=== PATIENT | female | born 1945 | race Caucasian/White ===

== ENCOUNTER → 2016-08-24 | Outpatient (REF) | payer MEDICARE, OTHER ==
[~2016-08-24] MED LIST: ACET-654 PO; ARIC10TA PO; CLON0.5T PO; COCO1000 PO; COQ-200C PO; FAMO1TAB25 PO; FISH1000 PO; FURO40TA2 PO; KLOR1TAB77 PO; LEVO75TA4 PO; LOSA100T36 PO; MELA1CAP2 PO; POTA595T8 PO; PRESCAP PO; SERT50TA PO; TORS100T PO; TRAM50TA2 PO; TYLE650T35 PO; VITA10002 PO; VITA10005 PO; VITA100066 PO; VOLT1GEL24 TD; [UNRECOGNIZED DRUG - CODE] PO
[2016-08-24 17:36] LABS: ANION GAP 4 MEQ/L (8-16); BLOOD UREA NITROGEN 16 MG/DL (7-18); CALCIUM LEVEL 8.9 MG/DL (8.8-10.2); CARBON DIOXIDE LEVEL 34 MEQ/L (21-32); CHLORIDE LEVEL 103 MEQ/L (98-107); GLOMERULAR FILTRATION RATE > 60.0 (>39); GLUCOSE, FASTING 103 MG/DL (83-110); POTASSIUM SERUM 3.6 MEQ/L (3.5-5.1); SODIUM LEVEL 141 MEQ/L (136-145)
== END ==
LOC: M LABDRAWC 16:19
PROVIDERS: ATTEND Internal Medicine Cardiovascular Disease
DX: I11.0 Hypertensive heart disease with heart failure (principal); I50.9 Heart failure, unspecified

== ENCOUNTER 2017-01-04 10:21 | Emergency (ER) | payer MEDICARE, OTHER ==
[~2017-01-04] VITALS: Ht 165.1 cm; Wt 113.6 kg
[~2017-01-04 10:21] MED LIST changes: -ACET-654 PO; +ACET1TAB17 PO; -ARIC10TA PO; +ARIC1TAB2 PO; +VOLT1GEL15 TD; -VOLT1GEL24 TD; +[UNRECOGNIZED DRUG - CODE] PO; -[UNRECOGNIZED DRUG - CODE] PO
[2017-01-04 11:06] LABS: BASO # 0.1 10^3/uL (0.0-0.2); BASO % 0.9 % (0.0-1.0); EOS # 0.3 10^3/uL (0.0-0.50); EOS % 3.8 % (0.0-3.0); IMMATURE GRANULOCYTE % 0.1 % (0-0); LYMPH # 2.2 10^3/uL (1.5-4.5); LYMPH % 31.5 % (24.0-44.0); MEAN CORPUSCULAR HEMOGLOBIN 24.2 pg (27.0-33.0); MEAN CORPUSCULAR HGB CONC 30.1 g/dl (32.0-36.5); MEAN CORPUSCULAR VOLUME 80.5 fl (80.0-96.0); MONO # 0.7 10^3/uL (0.0-0.8); MONO % 10.8 % (0.0-5.0); NEUTROPHILS # 3.6 10^3/uL (1.8-7.7); NEUTROPHILS % 52.9 % (36.0-66.0); PLATELET COUNT, AUTOMATED 236 10^3/uL (150-450); RED CELL DISTRIBUTION WIDTH 15.8 % (11.5-14.5); WHITE BLOOD COUNT 6.9 10^3/uL (4.0-10.0)
[2017-01-04 11:18] LABS: INR 0.96
--- NOTE | 2017-01-04 11:26 | REP ---
Chest two views HISTORY: Shortness of breath Comparison: 02/05/2015 The lungs are clear. The heart is normal in size. The pulmonary vasculature is normal in appearance. The bony structure is intact. IMPRESSION: No acute disease. Signed by Charles Hooks MD 01/04/2017 11:17 A
[2017-01-04 11:30] LABS: ALBUMIN 3.2 GM/DL (3.2-5.2); ALBUMIN/GLOBULIN RATIO 0.73 (1.00-1.93); ALKALINE PHOSPHATASE 101 U/L (45-117); ALT/SGPT 16 U/L (12-78); ANION GAP 4 MEQ/L (8-16); AST/SGOT 18 U/L (15-37); BILIRUBIN,DIRECT 0.1 MG/DL (0.0-0.2); BILIRUBIN,TOTAL 0.3 MG/DL (0.2-1.0); BLOOD UREA NITROGEN 16 MG/DL (7-18); CALCIUM LEVEL 8.3 MG/DL (8.8-10.2); CARBON DIOXIDE LEVEL 34 MEQ/L (21-32); CHLORIDE LEVEL 102 MEQ/L (98-107); CREATININE FOR GFR 0.96 MG/DL (0.55-1.02); GLOMERULAR FILTRATION RATE > 60.0 (>39); GLUCOSE, FASTING 120 MG/DL (83-110); POTASSIUM SERUM 3.2 MEQ/L (3.5-5.1); SODIUM LEVEL 140 MEQ/L (136-145); TOTAL PROTEIN 7.6 GM/DL (6.4-8.2)
[2017-01-04] MEDS ORDERED: POTASSIUM CHLORIDE 10 MEQ SR TABLET PO ONE (12:00)
[2017-01-04] MEDS ORDERED: ISOVUE-370 76% 100ML VIAL (Q9967) As Ordered ONE (12:35)
--- NOTE | 2017-01-04 13:50 | REP ---
CT ANGIOGRAM OF THE CHEST: TECHNIQUE: Axial contrast enhanced images from the thoracic inlet to the upper abdomen using 100 mL Isovue 370 intravenous contrast material with multiplanar reformations. There is no CT evidence of pulmonary embolism. There is no thoracic aortic aneurysm or dissection. There is no mediastinal, hilar, or chest wall lymphadenopathy. There is no pleural or pericardial effusion. Heart is normal in size. Two left lobe liver cysts are again seen. No consolidative infiltrate is seen in either lung. There are bibasilar fibroatelectatic changes. IMPRESSION: No CT evidence of pulmonary embolism. Signed by Mike Sanchez MD 01/04/2017 05:35 P
[2017-01-04 14:27] VITALS: BP 128/61
--- NOTE | 2017-01-05 05:55 | ECGEPIP ---
Stationary ECG Study [facility] - ED Test Date: 2017-01-04 Pat Name: PASCUAL IRELAND Department: Room: - Gender: F Incident Response Coordinator: nena : 1945 Requested By: Khushboo Chaparro Order Number: [id number] Reading MD: Meet Stewart Measurements Intervals [place] Rate: 62 P: 83 VA: 175 QRS: 23 QRSD: 90 T: 23 QT: 400 QTc: 407 Interpretive Statements SINUS RHYTHM MINIMAL ST DEPRESSION SIMILAR TO 05/08/15 Electronically Signed On 01-05-2017 5:55:39 EDT by Meet Stewart
== END 2017-01-04 14:28 | disposition home or self-care (01) ==
LOC: M ED 10:21
DX: R06.00 Dyspnea, unspecified (principal); J06.9 Acute upper respiratory infection, unspecified; I50.9 Heart failure, unspecified; I10 Essential (primary) hypertension; G47.30 Sleep apnea, unspecified; I27.20 Pulmonary hypertension, unspecified; Z98.84 Bariatric surgery status; Z79.899 Other long term (current) drug therapy; Z88.0 Allergy status to penicillin; Z88.8 Allergy status to other drugs, medicaments and biological substances
CPT/HCPCS: 71020; 71275; 80048; 80076; 82550; 82553; 83880; 84443; 84484; 85025; 85610; 87040; 93005; 93041; 94760; 99284; Q9967

== ENCOUNTER → 2017-04-19 | Outpatient (REF) | payer MEDICARE, OTHER ==
[2017-04-19 19:01] LABS: HEMATOCRIT 38.1 % (36.0-47.0); HEMOGLOBIN 11.3 g/dl (12.0-16.0); MEAN CORPUSCULAR HEMOGLOBIN 24.2 pg (27.0-33.0); MEAN CORPUSCULAR HGB CONC 29.7 g/dl (32.0-36.5); MEAN CORPUSCULAR VOLUME 81.6 fl (80.0-96.0); PLATELET COUNT, AUTOMATED 286 10^3/uL (150-450); RED BLOOD COUNT 4.67 10^6/uL (4.00-5.40); RED CELL DISTRIBUTION WIDTH 19.1 % (11.5-14.5)
[2017-04-19 20:00] LABS: ALBUMIN 3.5 GM/DL (3.2-5.2); ALBUMIN/GLOBULIN RATIO 0.92 (1.00-1.93); ALKALINE PHOSPHATASE 94 U/L (45-117); ALT/SGPT 23 U/L (12-78); ANION GAP 6 MEQ/L (8-16); AST/SGOT 21 U/L (7-37); BILIRUBIN,TOTAL 0.3 MG/DL (0.2-1.0); BLOOD UREA NITROGEN 25 MG/DL (7-18); CALCIUM LEVEL 8.2 MG/DL (8.8-10.2); CARBON DIOXIDE LEVEL 31 MEQ/L (21-32); CHLORIDE LEVEL 104 MEQ/L (98-107); CREATININE FOR GFR 0.94 MG/DL (0.55-1.30); GLOMERULAR FILTRATION RATE > 60.0 (>39); GLUCOSE, FASTING 93 MG/DL (70-100); POTASSIUM SERUM 4.5 MEQ/L (3.5-5.1); SODIUM LEVEL 141 MEQ/L (136-145); TOTAL PROTEIN 7.3 GM/DL (6.4-8.2)
[2017-04-19 20:04] LABS: PTH INTACT 180.2 PG/ML (14.0-72.0)
== END ==
LOC: M SFHCCLAY 13:30
DX: I50.32 Chronic diastolic (congestive) heart failure (principal); E03.9 Hypothyroidism, unspecified; M54.5 Low back pain; G89.29 Other chronic pain
CPT/HCPCS: 84443

== ENCOUNTER 2017-09-06 07:29 | Day surgery (SDC) | payer MEDICARE, OTHER ==
[2017-09-06] MEDS: DUOVISC (0.50ML VISCOAT/0.55ML PROVISC) OPHTH KIT As Ordered (06:37)
[2017-09-06] MEDS: CEFUROXIME 1MG/0.1ML INTRACAMERAL INJ As Ordered (06:37)
[2017-09-06] MEDS ORDERED: fentaNYL 100 MCG/2 ML INJECTION (J3010) As Ordered (08:07)
[2017-09-06] MEDS ORDERED: MIDAZOLAM INJ 2 MG/2 ML VIAL (J2250) As Ordered (08:07)
[2017-09-06] MEDS: PHENYLEPHRINE 2.5% OPHTH SOL 2ML OS (08:10)
[2017-09-06] MEDS: PROPARACAINE 0.5% OPHTH SOL 15ML OS (08:10)
[2017-09-06] MEDS: TROPICAMIDE 1% OPHTH SOLN 2ML OS (08:10)
[2017-09-06] MEDS: OFLOXACIN 0.3 % (OCUFLOX) OPTH SOL 5ML OS (08:10)
[2017-09-06] MEDS: POVIDONE-IODINE 5% OPHTH PREP SOL 30ML As Ordered (08:58)
[2017-09-06] MEDS: BALANCED SALT IRRIGATION SOLUTION 500ML BAG (FOR OR EYE MACHINE) As Ordered (08:59)
[2017-09-06] MEDS: LIDOCAINE 0.75%/EPINEPHRINE 0.025% IN BSS 1ML SYR INTRACAMERAL (OR ONLY) As Ordered (09:00)
== END 2017-09-06 09:47 | disposition home or self-care (01) ==
LOC: M SDC 07:29
DX: H25.12 Age-related nuclear cataract, left eye (principal); I11.0 Hypertensive heart disease with heart failure; I50.32 Chronic diastolic (congestive) heart failure; E78.5 Hyperlipidemia, unspecified; E03.9 Hypothyroidism, unspecified; R01.1 Cardiac murmur, unspecified; I73.9 Peripheral vascular disease, unspecified; K59.00 Constipation, unspecified; K57.32 Diverticulitis of large intestine without perforation or abscess without bleeding; M50.90 Cervical disc disorder, unspecified, unspecified cervical region; M47.892 Other spondylosis, cervical region; R41.81 Age-related cognitive decline; K58.9 Irritable bowel syndrome, unspecified; D64.9 Anemia, unspecified; M17.0 Bilateral primary osteoarthritis of knee; F41.9 Anxiety disorder, unspecified; F03.90 Unspecified dementia, unspecified severity, without behavioral disturbance, psychotic disturbance, mood disturbance, and anxiety; R51 Headache; K92.1 Melena; R06.83 Snoring; G47.33 Obstructive sleep apnea (adult) (pediatric); M20.41 Other hammer toe(s) (acquired), right foot; E66.9 Obesity, unspecified; Z68.41 Body mass index [BMI] 40.0-44.9, adult; Z88.0 Allergy status to penicillin; Z79.899 Other long term (current) drug therapy; Z87.820 Personal history of traumatic brain injury; Z78.0 Asymptomatic menopausal state; Z96.651 Presence of right artificial knee joint; Z90.710 Acquired absence of both cervix and uterus; Z98.84 Bariatric surgery status; Z80.0 Family history of malignant neoplasm of digestive organs
CPT/HCPCS: 66984

== ENCOUNTER 2017-09-13 09:16 | Day surgery (SDC) | payer MEDICARE, OTHER ==
[2017-09-13] MEDS: ACETYLCHOLINE OPHTH SOLN 1% 2ML (MIOCHOL-E) As Ordered (06:51)
[~2017-09-13 09:16] MED LIST changes: -ACET1TAB17 PO; -ARIC1TAB2 PO; -CLON0.5T PO; -COCO1000 PO; -COQ-200C PO; -FAMO1TAB25 PO; -FISH1000 PO; -FURO40TA2 PO; -KLOR1TAB77 PO; -LEVO75TA4 PO; -LOSA100T36 PO; -MELA1CAP2 PO; +MIDAZOLAM INJ 2 MG/2 ML VIAL (J2250) As Ordered; -POTA595T8 PO; -PRESCAP PO; -SERT50TA PO; -TORS100T PO; -TRAM50TA2 PO; -TYLE650T35 PO; -VITA10002 PO; -VITA10005 PO; -VITA100066 PO; -VOLT1GEL15 TD; -[UNRECOGNIZED DRUG - CODE] PO; +fentaNYL 100 MCG/2 ML INJECTION (J3010) As Ordered
[2017-09-13] MEDS: PROPARACAINE 0.5% OPHTH SOL 15ML OD (10:05)
[2017-09-13] MEDS: OFLOXACIN 0.3 % (OCUFLOX) OPTH SOL 5ML OD (10:06)
[2017-09-13] MEDS: TROPICAMIDE 1% OPHTH SOLN 2ML OD (10:07)
[2017-09-13] MEDS: PHENYLEPHRINE 2.5% OPHTH SOL 2ML OD (10:08)
[2017-09-13] MEDS: BALANCED SALT IRRIGATION SOLUTION 500ML BAG (FOR OR EYE MACHINE) As Ordered (11:32)
[2017-09-13] MEDS: LIDOCAINE 0.75%/EPINEPHRINE 0.025% IN BSS 1ML SYR INTRACAMERAL (OR ONLY) As Ordered (11:32)
[2017-09-13] MEDS: POVIDONE-IODINE 5% OPHTH PREP SOL 30ML As Ordered (11:32)
[2017-09-13] MEDS: DUOVISC (0.50ML VISCOAT/0.55ML PROVISC) OPHTH KIT As Ordered (11:32)
== END 2017-09-13 12:24 | disposition home or self-care (01) ==
LOC: M SDC 09:16
DX: H25.11 Age-related nuclear cataract, right eye (principal); I10 Essential (primary) hypertension; I50.32 Chronic diastolic (congestive) heart failure; E78.5 Hyperlipidemia, unspecified; E03.9 Hypothyroidism, unspecified; M17.0 Bilateral primary osteoarthritis of knee; R01.1 Cardiac murmur, unspecified; I73.9 Peripheral vascular disease, unspecified; D64.9 Anemia, unspecified; M50.90 Cervical disc disorder, unspecified, unspecified cervical region; F41.9 Anxiety disorder, unspecified; F09 Unspecified mental disorder due to known physiological condition; R41.81 Age-related cognitive decline; G47.33 Obstructive sleep apnea (adult) (pediatric); R06.83 Snoring; K59.00 Constipation, unspecified; M20.41 Other hammer toe(s) (acquired), right foot; G89.29 Other chronic pain; Z88.0 Allergy status to penicillin; Z88.8 Allergy status to other drugs, medicaments and biological substances; Z79.899 Other long term (current) drug therapy; Z87.820 Personal history of traumatic brain injury; Z78.0 Asymptomatic menopausal state; Z98.84 Bariatric surgery status; Z96.651 Presence of right artificial knee joint
CPT/HCPCS: 66984

== ENCOUNTER → 2017-11-23 | Outpatient (CLI) | payer MEDICARE, OTHER | LOC: M CLY 10:30 | DX: M51.36 Other intervertebral disc degeneration, lumbar region (principal); M54.5 Low back pain; I50.32 Chronic diastolic (congestive) heart failure; E03.9 Hypothyroidism, unspecified; G47.33 Obstructive sleep apnea (adult) (pediatric) | CPT/HCPCS: 72110; 84443 ==

== ENCOUNTER → 2017-11-23 | Outpatient (REF) | payer MEDICARE, OTHER ==
[2017-11-23 19:34] LABS: ALBUMIN 3.8 GM/DL (3.2-5.2); ALBUMIN/GLOBULIN RATIO 0.93 (1.00-1.93); ALKALINE PHOSPHATASE 96 U/L (45-117); ALT/SGPT 26 U/L (12-78); ANION GAP 7 MEQ/L (8-16); AST/SGOT 24 U/L (7-37); BILIRUBIN,TOTAL 0.4 MG/DL (0.2-1.0); BLOOD UREA NITROGEN 19 MG/DL (7-18); CALCIUM LEVEL 9.3 MG/DL (8.8-10.2); CARBON DIOXIDE LEVEL 33 MEQ/L (21-32); CHLORIDE LEVEL 103 MEQ/L (98-107); FREE T4 1.19 NG/DL (0.76-1.46); GLOMERULAR FILTRATION RATE 57.7 (>39); GLUCOSE, FASTING 107 MG/DL (70-100); POTASSIUM SERUM 5.1 MEQ/L (3.5-5.1); SODIUM LEVEL 143 MEQ/L (136-145); TOTAL PROTEIN 7.9 GM/DL (6.4-8.2)
[2017-11-23 19:44] LABS: HEMATOCRIT 44.1 % (36.0-47.0); MEAN CORPUSCULAR HEMOGLOBIN 28.3 pg (27.0-33.0); MEAN CORPUSCULAR HGB CONC 31.7 g/dl (32.0-36.5); MEAN CORPUSCULAR VOLUME 89.1 fl (80.0-96.0); PLATELET COUNT, AUTOMATED 275 10^3/uL (150-450); RED BLOOD COUNT 4.95 10^6/uL (4.00-5.40); RED CELL DISTRIBUTION WIDTH 14.9 % (11.5-14.5); WHITE BLOOD COUNT 7.9 10^3/uL (4.0-10.0)
== END ==
LOC: M SFHCCLAY 10:14
DX: I50.32 Chronic diastolic (congestive) heart failure (principal); E03.9 Hypothyroidism, unspecified; G47.33 Obstructive sleep apnea (adult) (pediatric)
CPT/HCPCS: 84443

== ENCOUNTER → 2018-04-20 | Outpatient (CLI) | payer MEDICARE, OTHER ==
[~2018-04-20] MED LIST changes: +ACET1TAB55 PO; +ARIC1TAB2 PO; +CLON0.5T8 PO; +CO Q100C PO; +COCO1000 PO; +COQ-200C PO; +FAMO1TAB25 PO; +FISH1000 PO; +FURO40TA2 PO; +IRON100T PO; +IRONTAB2 PO; +KLOR1TAB77 PO; +LEVO75TA4 PO; +LOSA100T50 PO; +MELA1CAP2 PO; -MIDAZOLAM INJ 2 MG/2 ML VIAL (J2250) As Ordered; +POTA595T8 PO; +PRESCAP PO; +SERT50TA PO; +SPIR-10 PO; +TORS100T PO; +TRAM50TA2 PO; +TRIPCAP PO; +TUMS500C PO; +TYLE650T35 PO; +VITA-137 PO; +VITA10002 PO; +VITA10005 PO; +VITA100066 PO; +VITA1OIL PO; +VOLT1GEL15 TD; +[UNRECOGNIZED DRUG - CODE] PO; -fentaNYL 100 MCG/2 ML INJECTION (J3010) As Ordered
--- NOTE | 2018-04-20 10:29 | REP ---
Clinical: Morning headaches. Comparison: 03/04/2016 . Findings: Age-related atrophy and microvascular ischemic changes are appreciated. The ventricles and sulci are symmetric. Sanchez-white differentiation is maintained. There is no evidence for acute intracranial hemorrhage, mass/mass effect, pathology or infarction. No extra-axial fluid collection. Calvarium is intact. Paranasal sinuses and mastoid air cells are clear. Stable chronic calcification in the high right frontal scalp may represent calcified sebaceous cyst. Impression: Age related atrophy and microvascular ischemic changes. No acute intracranial hemorrhage, infarction, or mass/mass effect. Electronically Signed by Alex Honeycutt MD 04/20/2018 10:19 A
== END ==
LOC: M RAD 09:51
PROVIDERS: ATTEND Family Medicine
DX: R51 Headache (principal)

== ENCOUNTER 2018-04-26 17:29 | Emergency (ER) | payer MEDICARE, OTHER ==
[~2018-04-26] VITALS: Ht 170.2 cm; Wt 125.0 kg
--- NOTE | 2018-04-26 18:04 | ECGEPIP ---
Stationary ECG Study [facility] - ED Test Date: 2018-04-26 Pat Name: PASCUAL IRELNAD Department: Room: - Gender: F Traffic Rate Computer: AB : 1945 Requested By: ALYSSA Blanco Order Number: [id number] Reading MD: Khushboo Chaparro Measurements Intervals [place] Rate: 51 P: 44 VT: 192 QRS: 11 QRSD: 84 T: 8 QT: 425 QTc: 392 Interpretive Statements SINUS BRADYCARDIA NSTTW ABNORMALITY DECREASED RATE 01/04/17 Electronically Signed On 04-26-2018 18:04:36 EST by Khushboo Chaparro
[2018-04-26 18:12] LABS: BASO # 0.1 10^3/uL (0.0-0.2); BASO % 0.7 % (0.0-1.0); EOS # 0.2 10^3/uL (0.0-0.50); HEMATOCRIT 41.6 % (36.0-47.0); MEAN CORPUSCULAR HEMOGLOBIN 28.2 pg (27.0-33.0); MEAN CORPUSCULAR HGB CONC 31.3 g/dl (32.0-36.5); MEAN CORPUSCULAR VOLUME 90.2 fl (80.0-96.0); MONO # 0.6 10^3/uL (0.0-0.8); MONO % 7.5 % (0.0-5.0); NEUTROPHILS # 3.8 10^3/uL (1.8-7.7); NEUTROPHILS % 49.5 % (36.0-66.0); PLATELET COUNT, AUTOMATED 217 10^3/uL (150-450); RED BLOOD COUNT 4.61 10^6/uL (4.00-5.40); WHITE BLOOD COUNT 7.7 10^3/uL (4.0-10.0)
[2018-04-26 18:24] LABS: INR 0.9; PROTHROMBIN TIME 12.2 SECONDS (12.1-14.4)
[2018-04-26 18:25] LABS: PARTIAL THROMBOPLASTIN TIME 29.7 SECONDS (25.4-37.6)
[2018-04-26 18:48] LABS: BLOOD UREA NITROGEN 25 MG/DL (7-18); CALCIUM LEVEL 8.3 MG/DL (8.8-10.2); CARBON DIOXIDE LEVEL 28 MEQ/L (21-32); CHLORIDE LEVEL 107 MEQ/L (98-107); CPK CREATINE PHOSPHOKINASE 102 U/L (26-192); GLOMERULAR FILTRATION RATE 57.7 (>39); GLUCOSE, FASTING 97 MG/DL (70-100); MB/CK RELATIVE INDEX 2.55 (< OR =4); SODIUM LEVEL 143 MEQ/L (136-145); TROPONIN I < 0.02 NG/ML (< 0.10)
--- NOTE | 2018-04-26 18:53 | REP ---
CHEST, PORTABLE: AP portable view of the chest is performed and compared to prior study of 01/04/2017. There is no acute infiltrate or pulmonary edema. The heart is upper limits of normal in size. There is some tortuosity of the thoracic aorta. The mediastinal silhouette is unchanged. There are mild degenerative changes of the spine. IMPRESSION: No acute pulmonary disease. Electronically Signed by Mike Sanchez MD 04/26/2018 07:48 P
[2018-04-26 19:28] VITALS: BP 108/64
[2018-04-26] MEDS ORDERED: NORCO, ANEXSIA 5/325MG TABLET (HYDROcodone/ACETAMINOPHEN) PO ONE (19:30)
[2018-04-26] MEDS ORDERED: NORCO 5/325MG TABLET (BULK FOR ED) PO ONE (19:30)
== END 2018-04-26 19:40 | disposition home or self-care (01) ==
LOC: EDBD 17:29 → M ED 17:29
DX: R07.89 Other chest pain (principal); R00.1 Bradycardia, unspecified; Z98.84 Bariatric surgery status; I10 Essential (primary) hypertension; E03.9 Hypothyroidism, unspecified; Z79.899 Other long term (current) drug therapy; Z88.0 Allergy status to penicillin; Z88.8 Allergy status to other drugs, medicaments and biological substances

== ENCOUNTER → 2018-08-22 | Outpatient (REF) | payer MEDICARE, OTHER ==
[~2018-08-22] MED LIST changes: +SERT-141 PO; -SERT50TA PO
[2018-08-22 20:22] LABS: BLOOD UREA NITROGEN 17 MG/DL (7-18); CALCIUM LEVEL 9.7 MG/DL (8.8-10.2); CARBON DIOXIDE LEVEL 31 MEQ/L (21-32); CHLORIDE LEVEL 105 MEQ/L (98-107); CREATININE FOR GFR 0.87 MG/DL (0.55-1.30); GLOMERULAR FILTRATION RATE > 60.0 (>39); GLUCOSE, FASTING 111 MG/DL (70-100); POTASSIUM SERUM 4.8 MEQ/L (3.5-5.1); SODIUM LEVEL 142 MEQ/L (136-145)
== END ==
LOC: M SFHCCLAY 10:15
PROVIDERS: ATTEND Family Medicine
DX: R41.81 Age-related cognitive decline (principal); E03.9 Hypothyroidism, unspecified
CPT/HCPCS: 80048; 84252; 84439; 84443; G0463

== ENCOUNTER → 2018-08-26 | Outpatient (CLI) | payer MEDICARE, OTHER ==
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
== END ==
LOC: M CLY 09:44
PROVIDERS: ATTEND Family Medicine
DX: M25.862 Other specified joint disorders, left knee (principal); M25.762 Osteophyte, left knee

== ENCOUNTER → 2019-01-29 | Outpatient (REF) | payer MEDICARE, OTHER ==
[~2019-01-29] MED LIST changes: +CYAN100049 PO; -VITA10002 PO
[2019-01-29 11:53] LABS: ALBUMIN 3.2 GM/DL (3.2-5.2); BLOOD UREA NITROGEN 16 MG/DL (7-18); CARBON DIOXIDE LEVEL 34 MEQ/L (21-32); CHLORIDE LEVEL 106 MEQ/L (98-107); CREATININE FOR GFR 0.94 MG/DL (0.55-1.30); FREE T4 0.96 NG/DL (0.76-1.46); GLOMERULAR FILTRATION RATE > 60.0 (>39); GLUCOSE, FASTING 114 MG/DL (70-100); POTASSIUM SERUM 4.3 MEQ/L (3.5-5.1); SODIUM LEVEL 143 MEQ/L (136-145)
== END ==
LOC: M SFHCCLAY 08:27
PROVIDERS: ATTEND Family Medicine
DX: E03.9 Hypothyroidism, unspecified (principal); I50.32 Chronic diastolic (congestive) heart failure

== ENCOUNTER 2019-03-26 11:15 | Emergency (ER) | payer MEDICARE, OTHER ==
[~2019-03-26] VITALS: Ht 152.4 cm; Wt 122.7 kg
[~2019-03-26 11:15] MED LIST changes: +CLON0.5T2 PO; -CLON0.5T8 PO
[2019-03-26] MEDS ORDERED: ST JOHNS WART PO (11:47)
[2019-03-26] MEDS ORDERED: MAPA500C PO (11:47)
[2019-03-26] MEDS ORDERED: TURM1CAP5 PO (11:47)
[2019-03-26] MEDS ORDERED: SUPETAB56 PO (11:47)
[2019-03-26 11:58] LABS: BASO # 0.1 10^3/uL (0.0-0.2); BASO % 0.7 % (0.0-1.0); EOS # 0.1 10^3/uL (0.0-0.5); EOS % 1.7 % (0.0-3.0); HEMATOCRIT 44.5 % (36.0-47.0); HEMOGLOBIN 13.8 g/dl (12.0-15.5); LYMPH # 2.7 10^3/uL (1.5-5.0); LYMPH % 35.4 % (24.0-44.0); MEAN CORPUSCULAR VOLUME 90.4 fl (80.0-96.0); MONO # 0.7 10^3/uL (0.0-0.8); MONO % 8.5 % (0.0-5.0); NEUTROPHILS # 4.1 10^3/uL (1.5-8.5); NEUTROPHILS % 53.4 % (36.0-66.0); PLATELET COUNT, AUTOMATED 244 10^3/uL (150-450); RED BLOOD COUNT 4.92 10^6/uL (4.00-5.40); WHITE BLOOD COUNT 7.7 10^3/uL (4.0-10.0)
--- NOTE | 2019-03-26 12:07 | REP ---
Portable chest x-ray: Single view. History: Dyspnea. Cough. Comparison study May 08, 2018. Findings: The lungs are well inflated and clear. Pleural angles are sharp. Heart size is mildly enlarged unchanged. The aorta somewhat tortuous. Pulmonary vasculature is not increased. Impression: Mild cardiomegaly. Otherwise no acute disease. Electronically Signed by Sherif Henderson MD 03/26/2019 11:58 A
[2019-03-26 12:26] LABS: BLOOD UREA NITROGEN 28 MG/DL (7-18); CALCIUM LEVEL 9.1 MG/DL (8.8-10.2); CARBON DIOXIDE LEVEL 28 MEQ/L (21-32); CHLORIDE LEVEL 102 MEQ/L (98-107); CK-MB VALUE MASS < 1.0 NG/ML (<3.6); CPK CREATINE PHOSPHOKINASE 37 U/L (26-192); CREATININE FOR GFR 1.19 MG/DL (0.55-1.30); GLOMERULAR FILTRATION RATE 47.1 (>39); GLUCOSE, FASTING 111 MG/DL (70-100); NT-PRO BNP 127 PG/ML (<450); POTASSIUM SERUM 3.7 MEQ/L (3.5-5.1); SODIUM LEVEL 140 MEQ/L (136-145); TROPONIN I < 0.02 NG/ML (< 0.10)
[2019-03-26 12:47] LABS: FREE T4 1.19 NG/DL (0.76-1.46)
[2019-03-26] MEDS ORDERED: ISOVUE-370 76% 100ML VIAL (Q9967) As Ordered ONE (13:32)
--- NOTE | 2019-03-26 13:36 | REP ---
Duplex extremity venous ultrasound: Bilateral lower extremities. History: Bilateral lower extremity edema and pain. Rule out DVT. Findings: The deep veins are anechoic and fully compressible from the groin to the popliteal fossa in the left and right lower extremity. Color flow imaging is homogeneous. Spectral Doppler interrogation demonstrates intact respiratory variation in flow and normal manual augmentation of flow. There is no evidence of deep vein thrombosis. Incidental note is made of a 6.7 x 0.7 x 2.5 cm cystic structure in the popliteal fossa on the left consistent with a Ray's cyst. Impression: Negative bilateral lower extremity duplex venous ultrasound. No evidence of deep vein thrombosis. A Ray's cyst is visible on the left. Electronically Signed by Sherif Henderson MD 03/26/2019 01:28 P
[2019-03-26 14:34] VITALS: O2SAT 99
--- NOTE | 2019-03-26 14:37 | REP ---
CT PULMONARY ANGIOGRAM: WITH IV CONTRAST. HISTORY: Chest and shortness of breath COMPARISON STUDIES: Comparison chest CT study, January 04, 2017. March 04, 2016 prior study is also reviewed. CONTRAST DOSE: 75 mL of Isovue [address] TECHNIQUE: Helical scanning is acquired and overlapping 1.5 mm and contiguous 3 mm axial images are reformatted. In addition, maximum intensity projection and multiplanar re-formation images are generated in sagittal and coronal imaging projections. CT PULMONARY ANGIOGRAPHIC FINDINGS: There is good opacification in the pulmonary arterial tree. There is no evidence of vessel cutoff or filling defect to suggest pulmonary embolus. Maximum intensity projection images show no vascular abnormality. Mild vascular calcification is seen. There is no evidence of aortic aneurysm or dissection. No pleural or pericardial effusion is seen. The patient is status post cholecystectomy and gastric bypass surgery. There is a right adrenal nodule which measures 2.6 cm in greatest diameter. This is a relatively low density. It is felt to be unchanged from comparison CT studies March 04, 2016. The visualized upper abdominal structures are otherwise unremarkable. There is a small cyst in the left lobe of the liver also unchanged. There is no evidence of hilar or mediastinal mass or adenopathy. No infiltrate or mass is seen in the lung callahan. No significant pulmonary nodule is appreciated. There is a small calcified granuloma in the right lower lobe posteriorly. IMPRESSION: No CT evidence of pulmonary embolus. No acute disease. Electronically Signed by Sherif Henderson MD 03/26/2019 04:42 P
[2019-03-26 18:11] LABS: CK-MB VALUE MASS 1.3 NG/ML (<3.6); CPK CREATINE PHOSPHOKINASE 46 U/L (26-192); MB/CK RELATIVE INDEX 2.83 (< OR =4); TROPONIN I < 0.02 NG/ML (< 0.10)
--- NOTE | 2019-03-26 18:15 | ECGEPIP ---
[facility] - ED Test Date: 2019-03-26 Pat Name: PASCUAL IRELAND Department: Room: - Gender: Female Infant Caregiver: DEV : 1945 Requested By: Meet Reed Order Number: [id number] Reading MD: Khushboo Chaparro Measurements Intervals [place] Rate: 56 P: 66 AK: 176 QRS: 24 QRSD: 90 T: 21 QT: 421 QTc: 410 Interpretive Statements SINUS BRADYCARDIA NSTTW abnormalities SIMILAR 04/26/18 Electronically Signed on 03-26-2019 18:15:04 EST by Khushboo Chaparro
--- NOTE | 2019-03-26 18:26 | ECGEPIP ---
[facility] - ED Test Date: 2019-03-26 Pat Name: PASCUAL IRELAND Department: Room: - Gender: Female Manager E Commerce: DEV : 1945 Requested By: WOLF Boogie Order Number: [id number] Reading MD: Khushboo Chaparro Measurements Intervals [place] Rate: 46 P: 83 AR: 198 QRS: 22 QRSD: 88 T: 26 QT: 447 QTc: 391 Interpretive Statements SINUS BRADYCARDIA MODERATE ST DEPRESSION DECREASED RATE 03/26/19 11:33 Electronically Signed on 03-26-2019 18:25:57 EST by Khushboo Chaparro
[2019-03-26 18:30] VITALS: BP 160/95
== END 2019-03-26 18:54 | disposition home or self-care (01) ==
LOC: M ED 11:15
DX: R06.02 Shortness of breath (principal); I11.0 Hypertensive heart disease with heart failure; R00.1 Bradycardia, unspecified; M71.22 Synovial cyst of popliteal space [Baker], left knee; E66.9 Obesity, unspecified; Z86.79 Personal history of other diseases of the circulatory system; Z88.0 Allergy status to penicillin; Z91.09 Other allergy status, other than to drugs and biological substances; Z79.811 Long term (current) use of aromatase inhibitors; Z79.899 Other long term (current) drug therapy
CPT/HCPCS: 36415; 71045; 71275; 80048; 82550; 82553; 83880; 84439; 84443; 84484; 85025; 93005; 93041; 93970; 94760; 99285; Q9967

== ENCOUNTER → 2019-04-02 | Outpatient (CLI) | payer MEDICARE, OTHER ==
[~2019-04-02] MED LIST changes: +MAPA500C PO; +ST JOHNS WART PO; +SUPETAB56 PO; +TURM1CAP5 PO
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
== END ==
LOC: M PAIN 09:30
PROVIDERS: ATTEND Family Medicine
DX: M54.2 Cervicalgia (principal); M54.5 Low back pain

== ENCOUNTER → 2019-04-07 | Outpatient (CLI) | payer MEDICARE, OTHER ==
[2019-04-07 16:04] LABS: CREATININE FOR GFR 1.07 MG/DL (0.55-1.30); GLOMERULAR FILTRATION RATE 53.2 (>39)
== END ==
LOC: M LAB 15:08
PROVIDERS: ATTEND Family Medicine
DX: M50.90 Cervical disc disorder, unspecified, unspecified cervical region (principal)

== ENCOUNTER → 2019-04-17 | Outpatient (CLI) | payer MEDICARE, OTHER ==
[~2019-04-17] MED LIST changes: +PROHANCE 279.3MG/ML 15ML VIAL (A9576) As Ordered ONE
--- NOTE | 2019-04-18 10:30 | REPVR ---
PROCEDURE INFORMATION: Exam: MR Cervical Spine Without and With Contrast Exam date and time: 04/17/2019 3:14 PM Age: 73 years old Clinical indication: Pain; Cervicalgia; Additional info: Cervicalgia, low back pain TECHNIQUE: Imaging protocol: Multiplanar magnetic resonance images of the cervical spine without and with intravenous contrast. Contrast material: PROHANCE; Contrast volume: 11 ml; Contrast route: IV; COMPARISON: CR Spine, Cervical 07/20/2014 12:25 PM FINDINGS: Vertebrae: Trace 2 mm of grade 1 degenerative anterolisthesis of C4 on C5 and C5 on C6. No acute fracture seen. Mild, chronic T1, T2 and T3 superior endplate height loss. Spinal cord: Normal signal. No cord compression. No abnormal enhancement. Disc desiccation throughout. No significant disc height loss. There is mild lower cervical and upper thoracic prevertebral spondylosis. C2-C3: Severe right facet arthropathy as well as mild uncovertebral arthropathy causing moderate right neural foraminal stenosis. The central spinal canal and left foramen are patent. C3-C4: Severe facet arthropathy causing moderate left and mild right neural foraminal stenoses. C4-C5: Slight anterolisthesis with pseudobulging of the intervertebral disc. The central spinal canal is patent. Severe right and moderate facet arthropathy causing severe right and moderate left neural foraminal stenoses. C5-C6: Slight anterolisthesis with pseudo bulging of the intervertebral disc. There is mild posterior ligamentum flavum buckling. The central spinal canal remains patent. Uncovertebral and facet arthropathy, in particular right facet arthropathy causing moderate bilateral neural foraminal stenoses. C6-C7: 2.4 mm left paracentral disc protrusion indents ventral thecal sac and minimally contours left ventral cord but does not contribute to cord myelopathy or central spinal canal stenosis. Uncovertebral and facet arthropathy causing [id number] left neural foraminal stenosis. No significant right neural foraminal narrowing. C7-T1: Mild uncovertebral arthropathy as well as mild to moderate facet arthropathy without contribution to stenoses. Vertebral arteries: Expected flow voids in the vertebral arteries. Soft tissues: Unremarkable. IMPRESSION: 1. Severe cervical facet arthropathy. There is slight grade 1 degenerative anterolisthesis of C4 on C5 and C5 on C6. 2. Mild cervical disc degeneration. 3. The central spinal canal appears patent at all levels. 4. Multilevel neural foraminal stenoses are detailed above. Electronically signed by: Justyna Beckford On 04/18/2019 10:30:03 AM
--- NOTE | 2019-04-18 10:44 | REPVR ---
PROCEDURE INFORMATION: Exam: MR Lumbar Spine Without Contrast. Exam date and time: 04/17/2019 3:14 PM Age: 73 years old Clinical indication: Low back pain; Additional info: Cervicalgia, low back pain TECHNIQUE: Imaging protocol: Multiplanar magnetic resonance images of the lumbar spine without intravenous contrast. COMPARISON: CR Spine. Lumbosacral, complete 07/20/2014 12:25 PM FINDINGS: Vertebrae: 2 mm of degenerative retrolisthesis of L2 on L3 and L5 on S1. Mild levoconvex scoliosis. No acute fracture seen. There is an L5 hemangioma. Spinal cord: The conus medullaris ends normally. There is disc desiccation throughout. Disc height loss and spondylosis is marked essentially throughout, relatively less significant at the L4-L5 level. Predominantly fatty degenerative marrow signal change of the endplates from L1-L2 through L3-L4 with trace endplate inflammation in keeping with Modic 2/Modic 1 degeneration. L1-L2: Marked disc osteophyte complex as well as mild to moderate facet arthropathy and ligamentum flavum buckling. The central spinal canal remains patent. The left lateral recess is narrowed near the left L2 nerve root. No significant foraminal stenoses. L2-L3: Moderate right eccentric disc osteophyte complex as well as mild to moderate facet arthropathy and ligamentum flavum buckling. No significant central spinal canal stenosis. The lateral recesses are narrowed near the L3 nerve roots. No significant foraminal stenoses. L3-L4: Moderate diffuse disc osteophyte complex as well as mild to moderate facet arthropathy and ligamentum flavum buckling. A 4 mm central disc extrusion demonstrates slight caudal migration along the L4 superior endplate. No significant central spinal canal stenosis. Lateral recess stenoses are mild without fly nerve root impingement. Mild left neural foraminal stenosis. No significant right neural foraminal narrowing. L4-L5: Moderate disc osteophyte complex, facet arthropathy and ligamentum flavum buckling. The central spinal canal remains patent. Left lateral recess stenosis is mild. Moderate right neural foraminal stenosis, the exiting right L4 nerve root contacting hypertrophic facet joint spur. No significant left neural foraminal narrowing. L5-S1: Moderate right eccentric disc osteophyte complex, facet arthropathy and ligamentum flavum buckling. A caudally migrating right paracentral disc extrusion measures approximately 4-5 mm in AP dimension and extends 5 mm below the disc space contacting although not frankly compressing or displacing the right S1 nerve root. No significant central spinal canal stenosis. Kntf-lo-vfomzlzu right neural foraminal stenosis, the exiting right L5 nerve root may contact hypertrophic facet and/or far lateral disc osteophyte complex. Kidneys and ureters: The left kidney demonstrates a cyst. Soft tissues: Mild, nonspecific edema in the back subcutaneous fat potentially dependent/positional. IMPRESSION: 1. Mild degenerative levoconvex scoliosis. Advanced multilevel degenerative disc disease. 2. Left lateral recess stenosis at L1-L2. 3. Bilateral lateral recess stenoses at L2-L3. 4. Mild lateral recess as well as left neural foraminal stenoses at L3-L4. 5. Mild left lateral recess stenosis at L4-L5. Moderate right neural foraminal stenosis. 6. A small right paracentral disc extrusion at L5-S1 contacts the right S1 nerve root. Mild to moderate right neural foraminal stenosis. Electronically signed by: Justyna Beckford On 04/18/2019 10:44:31 AM
== END ==
LOC: M RAD 13:22
PROVIDERS: ATTEND Family Medicine
DX: M54.5 Low back pain (principal); M54.2 Cervicalgia
CPT/HCPCS: 72148; 72156; A9576

== ENCOUNTER 2019-04-20 12:42 | Emergency (ER) | payer MEDICARE, OTHER ==
[~2019-04-20] VITALS: Ht 170.2 cm; Wt 114.5 kg
[~2019-04-20 12:42] MED LIST changes: -PROHANCE 279.3MG/ML 15ML VIAL (A9576) As Ordered ONE
[2019-04-20 13:11] LABS: BASO # 0.1 10^3/uL (0.0-0.2); BASO % 0.6 % (0.0-1.0); EOS # 0.2 10^3/uL (0.0-0.5); HEMATOCRIT 42.3 % (36.0-47.0); HEMOGLOBIN 13.1 g/dl (12.0-15.5); LYMPH # 2.7 10^3/uL (1.5-5.0); LYMPH % 33.3 % (24.0-44.0); MEAN CORPUSCULAR HEMOGLOBIN 27.8 pg (27.0-33.0); MEAN CORPUSCULAR VOLUME 89.8 fl (80.0-96.0); MONO # 0.5 10^3/uL (0.0-0.8); MONO % 6.6 % (0.0-5.0); NEUTROPHILS # 4.7 10^3/uL (1.5-8.5); NEUTROPHILS % 57.3 % (36.0-66.0); PLATELET COUNT, AUTOMATED 228 10^3/uL (150-450); RED BLOOD COUNT 4.71 10^6/uL (4.00-5.40); WHITE BLOOD COUNT 8.2 10^3/uL (4.0-10.0)
--- NOTE | 2019-04-20 13:15 | ECGEPIP ---
[facility] - ED Test Date: 2019-04-20 Pat Name: PASCUAL IRELAND Department: Room: - Gender: Female Buccaro: myrna : 1945 Requested By: Khushboo Chaparro Order Number: [id number] Reading MD: Meet Stewart Measurements Intervals [place] Rate: 49 P: 96 [place]: 192 QRS: 22 QRSD: 78 T: 20 QT: 452 QTc: 412 Interpretive Statements SINUS BRADYCARDIA NSTTW ABNORMALITIES SIMILAR TO 03/26/19 Electronically Signed on 04-20-2019 13:15:35 EST by Meet Stewart
[2019-04-20 13:25] LABS: INR 1.02; PROTHROMBIN TIME 13.1 SECONDS (11.8-14.0)
[2019-04-20 13:36] LABS: ALBUMIN 3.4 GM/DL (3.2-5.2); ALT/SGPT 22 U/L (12-78); BILIRUBIN,DIRECT 0.1 MG/DL (0.0-0.2); BILIRUBIN,TOTAL 0.5 MG/DL (0.2-1.0); BLOOD UREA NITROGEN 19 MG/DL (7-18); CALCIUM LEVEL 8.3 MG/DL (8.8-10.2); CARBON DIOXIDE LEVEL 30 MEQ/L (21-32); CHLORIDE LEVEL 105 MEQ/L (98-107); CPK CREATINE PHOSPHOKINASE 53 U/L (26-192); CREATININE FOR GFR 0.91 MG/DL (0.55-1.30); GLOMERULAR FILTRATION RATE > 60.0 (>39); GLUCOSE, FASTING 115 MG/DL (70-100); LIPASE 122 U/L (73-393); MB/CK RELATIVE INDEX 1.89 (< OR =4); POTASSIUM SERUM 3.5 MEQ/L (3.5-5.1); SODIUM LEVEL 141 MEQ/L (136-145); TOTAL PROTEIN 7.2 GM/DL (6.4-8.2); TROPONIN I < 0.02 NG/ML (< 0.10)
[2019-04-20 14:19] LABS: NT-PRO BNP 175 PG/ML (<450)
--- NOTE | 2019-04-20 14:24 | REP ---
Portable chest, 02:08 p.m., single AP view with the patient sitting: Comparison is 03/26/2019. There is mild cardiomegaly, unchanged. Lung callahan are clear. The jaja, mediastinum, skeletal structures are unremarkable. Impression: Mild cardiomegaly. No interval change. Electronically Signed by Mike Navarro MD 04/20/2019 02:16 P
[2019-04-20 16:09] LABS: CPK CREATINE PHOSPHOKINASE 45 U/L (26-192); MB/CK RELATIVE INDEX 2.22 (< OR =4); TROPONIN I < 0.02 NG/ML (< 0.10)
[2019-04-20 17:36] VITALS: BP 128/72
== END 2019-04-20 17:37 | disposition home or self-care (01) ==
LOC: M ED 12:42 → EDBD 12:42 → M ED 17:37
DX: R07.9 Chest pain, unspecified (principal); R00.1 Bradycardia, unspecified; I51.7 Cardiomegaly; R06.00 Dyspnea, unspecified; R42 Dizziness and giddiness; Z86.718 Personal history of other venous thrombosis and embolism; Z88.0 Allergy status to penicillin; Z91.09 Other allergy status, other than to drugs and biological substances; Z79.899 Other long term (current) drug therapy

== ENCOUNTER → 2019-04-29 | Outpatient (CLI) | payer MEDICARE, OTHER ==
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
== END ==
LOC: M PAIN 11:00
PROVIDERS: ATTEND Family Medicine
DX: M50.90 Cervical disc disorder, unspecified, unspecified cervical region (principal); G89.29 Other chronic pain; I10 Essential (primary) hypertension; G47.33 Obstructive sleep apnea (adult) (pediatric); F03.90 Unspecified dementia, unspecified severity, without behavioral disturbance, psychotic disturbance, mood disturbance, and anxiety; E03.9 Hypothyroidism, unspecified; Z98.84 Bariatric surgery status; Z96.651 Presence of right artificial knee joint; Z88.0 Allergy status to penicillin; Z88.6 Allergy status to analgesic agent; E66.01 Morbid (severe) obesity due to excess calories; Z68.43 Body mass index [BMI] 50.0-59.9, adult; Z79.899 Other long term (current) drug therapy

== ENCOUNTER → 2020-01-19 | Outpatient (CLI) | payer MEDICARE, OTHER ==
[~2020-01-19] MED LIST changes: +ACET650T61 PO; -TYLE650T35 PO
--- NOTE | 2020-01-20 09:27 | REP ---
INDICATION: SPONDYLOSIS LUMBAR DDD LUMBAR. COMPARISON: None. TECHNIQUE: Sagittal and axial T1 and T2-weighted scans are acquired in the usual fashion with and without fat saturation. Sequences include spin echo, turbo spin-echo, and STIR imaging sequences. FINDINGS: Thoracic vertebral body heights are preserved. Alignment is normal. There is mild degenerative disc spurring along the anterior margin of the mid and lower thoracic spine levels. This is most pronounced distally in the thoracic spine at T10-T11. The thoracic spinal cord is normal in course, caliber and signal intensity on T1 and T2 weighted scans. There is no cord compressive lesion seen. No neural foraminal narrowing or lesion is observed. Incidental note is made of a nodule in the right adrenal gland measuring 2.6 cm in greatest diameter. This is unchanged from the low-density right adrenal adenoma seen on CT study March 04, 2016. No other extra vertebral abnormality is observed. There are several very small thoracic disc protrusions including: A very small right T3-4 disc protrusion, a small left T5-6 disc protrusion, right central disc bulging at T7-8, a broad-based small right posterior disc protrusion at T10-T11, and a tiny left focal disc protrusion at T11-12. There is disc bulging and facet hypertrophy bilaterally at T12-L1. IMPRESSION: Degenerative disc changes and facet changes as noted above. Multiple very small thoracic disc protrusions without evidence of cord compression or spinal stenosis. No neural foraminal narrowing is seen. Incidental note is made of a stable right adrenal adenoma. <Electronically signed by Chris Henderson > 01/20/20 0923
--- NOTE | 2020-01-20 09:40 | REP ---
INDICATION: OTHER INTERVERTEBRAL DISC DEGENERATION, L/S REGION. COMPARISON: Comparison MRI study April 17, 2019.. TECHNIQUE: Sagittal and axial T1 and T2-weighted scans are acquired in the usual fashion with and without fat saturation. Sequences include spin echo, turbo spin-echo, and STIR imaging sequences. FINDINGS: There is straightening of the normal lumbar lordosis. Lumbar vertebral body heights are preserved. There is no evidence of spondylolysis or spondylolisthesis. Degenerative spondylosis is seen throughout the lumbar spine. There is a small 1 cm cyst in the left kidney. No other extra vertebral abnormality is observed. Axial and sagittal images taken at L1-L2 demonstrate posterior osteophytic ridging and diffuse disc bulging effacing the ventral subarachnoid space just beyond the level of tip of the conus. There is minimal facet hypertrophy. Canal size is not significantly decreased. Midline AP dimension of the thecal sac is still 11 mm. At L1-L2, there is degenerative disc narrowing and posterior osteophytic ridging associated with diffuse disc bulging also indenting the ventral margin of the thecal sac. No spinal stenosis is seen. No neural foraminal narrowing is appreciated. At L3-L4, there is a central focal disc protrusion indenting the central ventral margin of the thecal sac. There is mild central canal stenosis due to this in conjunction with bulging of the remainder of the disc margin with associated osteophytic ridging. There is also a contribution of mild ligamentum flavum and facet hypertrophy. The midline AP dimension of thecal sac at the level of the L3-4 disc is 10 mm. No nerve root compression is seen. Findings are unchanged at L3-4. At L4-L5, there is a broad-based right central disc protrusion. Mild central canal stenosis is noted due to disc bulging, ligamentum flavum and facet hypertrophy. There is right-sided neural foraminal narrowing due to facet hypertrophy and disc bulging. This is unchanged. At L5-S1, there is diffuse broad-based disc bulging and right foraminal disc bulging with associated spurring is seen. There is right-sided neural foraminal narrowing mild in degree. This is felt to be unchanged. Facet hypertrophy is present unchanged. No spinal stenosis. IMPRESSION: Degenerative spondylosis diffusely. Findings unchanged from the prior study. There is a central focal disc protrusion at L3-4 with mild central canal stenosis at this level. Mild canal stenosis is present at L4-5. <Electronically signed by Chris Henderson > 01/20/20 0882
== END ==
LOC: M RAD 16:29
PROVIDERS: ATTEND Physician Assistant
DX: M47.897 Other spondylosis, lumbosacral region (principal); M51.37 Other intervertebral disc degeneration, lumbosacral region

== ENCOUNTER → 2020-06-16 | Outpatient (REF) | payer MEDICARE, OTHER ==
[2020-06-16 11:36] LABS: BASO # 0.1 10^3/uL (0.0-0.2); EOS # 0.2 10^3/uL (0.0-0.5); EOS % 3.1 % (0.0-3.0); HEMATOCRIT 40.8 % (36.0-47.0); HEMOGLOBIN 12.8 g/dl (12.0-15.5); LYMPH # 2.7 10^3/uL (1.5-5.0); MEAN CORPUSCULAR HEMOGLOBIN 28.6 pg (27.0-33.0); MEAN CORPUSCULAR HGB CONC 31.4 g/dl (32.0-36.5); MEAN CORPUSCULAR VOLUME 91.3 fl (80.0-96.0); MONO # 0.5 10^3/uL (0.0-0.8); NEUTROPHILS # 3.2 10^3/uL (1.5-8.5); NEUTROPHILS % 47.3 % (36.0-66.0); PLATELET COUNT, AUTOMATED 224 10^3/uL (150-450); RED BLOOD COUNT 4.47 10^6/uL (4.00-5.40); WHITE BLOOD COUNT 6.7 10^3/uL (4.0-10.0)
[2020-06-16 12:14] LABS: ALBUMIN 3.5 GM/DL (3.2-5.2); BILIRUBIN,TOTAL 0.4 MG/DL (0.2-1.0); CALCIUM LEVEL 8.9 MG/DL (8.8-10.2); CHOLESTEROL RISK RATIO 3.843 (<5); CREATININE FOR GFR 1.04 MG/DL (0.55-1.30); FREE T4 1.21 NG/DL (0.76-1.46); GLOMERULAR FILTRATION RATE 54.7 (>39); POTASSIUM SERUM 4.1 MEQ/L (3.5-5.1); THYROID STIMULATING HORMONE 2.62 uIU/ML (0.358-3.740)
== END ==
LOC: M SFHCCLAY 08:54
PROVIDERS: ATTEND Family Medicine
DX: E03.9 Hypothyroidism, unspecified (principal); I50.32 Chronic diastolic (congestive) heart failure; Z98.84 Bariatric surgery status
CPT/HCPCS: 80053; 80061; 84439; 84443; 85025; G0463

== ENCOUNTER → 2021-01-06 | Outpatient (REF) | payer MEDICARE, OTHER ==
[~2021-01-06] MED LIST changes: +FAMO10TA50 PO; -FAMO1TAB25 PO
[2021-01-06 11:45] LABS: HEMATOCRIT 39.6 % (36.0-47.0); HEMOGLOBIN 12.4 g/dl (12.0-15.5); MEAN CORPUSCULAR HEMOGLOBIN 28.2 pg (27.0-33.0); MEAN CORPUSCULAR HGB CONC 31.3 g/dl (32.0-36.5); PLATELET COUNT, AUTOMATED 224 10^3/uL (150-450); WHITE BLOOD COUNT 6.9 10^3/uL (4.0-10.0)
[2021-01-06 11:59] LABS: HEMOGLOBIN A1c 5.9 %
[2021-01-06 12:18] LABS: ALBUMIN 3.2 GM/DL (3.2-5.2); BILIRUBIN,TOTAL 0.4 MG/DL (0.2-1.0); CALCIUM LEVEL 8.9 MG/DL (8.8-10.2); CHOLESTEROL RISK RATIO 3.854 (<5); CREATININE FOR GFR 1.2 MG/DL (0.55-1.30); FREE T4 1.14 NG/DL (0.76-1.46); GLOMERULAR FILTRATION RATE 46.4 (>39); POTASSIUM SERUM 3.9 MEQ/L (3.5-5.1); THYROID STIMULATING HORMONE 2.84 uIU/ML (0.358-3.740); TOTAL PROTEIN 6.8 GM/DL (6.4-8.2)
== END ==
LOC: M SFHCCLAY 07:49
PROVIDERS: ATTEND Family Medicine
DX: I11.0 Hypertensive heart disease with heart failure (principal); Z98.84 Bariatric surgery status; E03.9 Hypothyroidism, unspecified; Z79.899 Other long term (current) drug therapy

== ENCOUNTER → 2021-10-21 | Outpatient (REF) | payer MEDICARE, OTHER ==
[~2021-10-21] MED LIST changes: +LOSA100T45 PO; -LOSA100T50 PO
[2021-10-21 18:06] LABS: HEMATOCRIT 39.5 % (36.0-47.0); HEMOGLOBIN 12.4 g/dl (12.0-15.5); MEAN CORPUSCULAR HEMOGLOBIN 28.2 pg (27.0-33.0); MEAN CORPUSCULAR HGB CONC 31.4 g/dl (32.0-36.5); MEAN CORPUSCULAR VOLUME 89.8 fl (80.0-96.0); PLATELET COUNT, AUTOMATED 200 10^3/uL (150-450); WHITE BLOOD COUNT 7.2 10^3/uL (4.0-10.0)
[2021-10-21 19:12] LABS: ALBUMIN 3.4 GM/DL (3.2-5.2); ALT/SGPT 21 U/L (12-78); BILIRUBIN,TOTAL 0.4 MG/DL (0.2-1.0); BLOOD UREA NITROGEN 19 MG/DL (7-18); CALCIUM LEVEL 8.9 MG/DL (8.8-10.2); CARBON DIOXIDE LEVEL 30 MEQ/L (21-32); CHLORIDE LEVEL 106 MEQ/L (98-107); CREATININE FOR GFR 0.95 MG/DL (0.55-1.30); GLOMERULAR FILTRATION RATE > 60.0 (>39); GLUCOSE, FASTING 92 MG/DL (70-100); POTASSIUM SERUM 4.2 MEQ/L (3.5-5.1); SODIUM LEVEL 141 MEQ/L (136-145); TOTAL PROTEIN 6.9 GM/DL (6.4-8.2)
== END ==
LOC: M SFHCCLAY 11:24
PROVIDERS: ATTEND Family Medicine
DX: I50.32 Chronic diastolic (congestive) heart failure (principal); E03.9 Hypothyroidism, unspecified

== ENCOUNTER → 2022-04-27 | Outpatient (REF) | payer MEDICARE, OTHER ==
[2022-04-27 17:24] LABS: BASO % 0.6 % (0.0-1.0); EOS # 0.2 10^3/uL (0.0-0.5); EOS % 2.9 % (0.0-3.0); HEMATOCRIT 40.6 % (36.0-47.0); HEMOGLOBIN 12.6 g/dl (12.0-15.5); LYMPH # 2.3 10^3/uL (1.5-5.0); LYMPH % 37.5 % (24.0-44.0); MEAN CORPUSCULAR HEMOGLOBIN 28.3 pg (27.0-33.0); MEAN CORPUSCULAR VOLUME 91.2 fl (80.0-96.0); MONO # 0.4 10^3/uL (0.0-0.8); MONO % 6.7 % (2.0-8.0); NEUTROPHILS # 3.2 10^3/uL (1.5-8.5); NEUTROPHILS % 52.1 % (36.0-66.0); PLATELET COUNT, AUTOMATED 236 10^3/uL (150-450); RED BLOOD COUNT 4.45 10^6/uL (4.00-5.40); WHITE BLOOD COUNT 6.2 10^3/uL (4.0-10.0)
[2022-04-27 18:01] LABS: THYROID STIMULATING HORMONE 0.332 uIU/ML (0.55-4.78)
[2022-04-27 18:02] LABS: FREE T4 1.3 NG/DL (0.89-1.76)
[2022-04-27 18:04] LABS: ALBUMIN 3.5 G/DL (3.2-5.2); BILIRUBIN,TOTAL 0.4 MG/DL (0.3-1.2); CALCIUM LEVEL 9.1 MG/DL (8.3-10.6); CHOLESTEROL RISK RATIO 3.44 (<5); CREATININE FOR GFR 1.2 MG/DL (0.55-1.30); GLOMERULAR FILTRATION RATE 46.3 (>39); HDL CHOLESTEROL 48.2 MG/DL (>40); LDL CHOLESTEROL 99.2 MG/DL (<100); POTASSIUM SERUM 4.3 MMOL/L (3.5-5.1); TOTAL PROTEIN 6.8 G/DL (5.7-8.2)
== END ==
LOC: M SFHCCLAY 09:08
PROVIDERS: ATTEND Family Medicine
DX: M50.90 Cervical disc disorder, unspecified, unspecified cervical region (principal); I10 Essential (primary) hypertension; E03.9 Hypothyroidism, unspecified

== ENCOUNTER → 2022-10-26 | Outpatient (REF) | payer MEDICARE, OTHER ==
[~2022-10-26] MED LIST changes: -LOSA100T45 PO; +LOSA100T46 PO
[2022-10-26 17:47] LABS: BLOOD UREA NITROGEN 9 MG/DL (9-23); CALCIUM LEVEL 8.6 MG/DL (8.3-10.6); CARBON DIOXIDE LEVEL 30 MMOL/L (20-31); CHLORIDE LEVEL 107 MMOL/L (98-107); CREATININE FOR GFR 0.72 MG/DL (0.55-1.30); GLOMERULAR FILTRATION RATE > 60.0 (>39); GLUCOSE, FASTING 91 MG/DL (74-106); POTASSIUM SERUM 4.6 MMOL/L (3.5-5.1); SODIUM LEVEL 142 MMOL/L (136-145)
[2022-10-26 17:49] LABS: FREE T4 0.85 NG/DL (0.89-1.76); THYROID STIMULATING HORMONE 3.196 uIU/ML (0.55-4.78)
== END ==
LOC: M SFHCCLAY 09:08
PROVIDERS: ATTEND Family Medicine
DX: E03.9 Hypothyroidism, unspecified (principal); I10 Essential (primary) hypertension

== ENCOUNTER → 2022-12-01 | Outpatient (CLI) | payer MEDICARE, OTHER | LOC: M CLY 08:40 | PROVIDERS: ATTEND Family Medicine | DX: G89.29 Other chronic pain (principal); M25.561 Pain in right knee; M25.562 Pain in left knee; Z96.651 Presence of right artificial knee joint ==

== ENCOUNTER 2022-12-23 15:38 | Emergency (ER) | payer MEDICARE, OTHER ==
[~2022-12-23] VITALS: Ht 170.2 cm; Wt 93.6 kg
[2022-12-23 15:39] VITALS: BP 150/72; TEMP 97.8; O2SAT 99
[2022-12-23] MEDS ORDERED: ACETAMINOPHEN TAB 650MG DOSE (2X325MG) PO ONE (18:55)
== END 2022-12-23 20:13 | disposition home or self-care (01) ==
LOC: M ED 15:38
DX: S80.02XA Contusion of left knee, initial encounter (principal); W17.89XA Other fall from one level to another, initial encounter; I10 Essential (primary) hypertension; I50.22 Chronic systolic (congestive) heart failure; F03.94 Unspecified dementia, unspecified severity, with anxiety; Z86.718 Personal history of other venous thrombosis and embolism; Z98.84 Bariatric surgery status; Z88.0 Allergy status to penicillin; Z88.5 Allergy status to narcotic agent; Z88.8 Allergy status to other drugs, medicaments and biological substances; Z79.811 Long term (current) use of aromatase inhibitors; Z79.899 Other long term (current) drug therapy